=== PATIENT | female | born 1980 | race Native Hawaiian/Other Pacific Islander ===

== ENCOUNTER 2021-08-22 09:47 | Outpatient (CLI) | payer BC, OTHER ==
[~2021-08-22] VITALS: Ht 172.7 cm; Wt 162.4 kg
== END 2021-08-22 20:29 | disposition home or self-care (01) ==
LOC: INF 09:47
PROVIDERS: ATTEND Nurse Practitioner Family
DX: U07.1 COVID-19 (principal); Z23 Encounter for immunization
CPT/HCPCS: 96365; Q0247